=== PATIENT | male | born 1960 | race Two or more races ===

== ENCOUNTER 2025-05-17 10:15 | Inpatient (IN) | payer OTHER, MEDICAID ==
[~2025-05-17] VITALS: Ht 180.3 cm; Wt 107.0 kg
--- NOTE | 2025-05-17 10:46 | ED.PDOC ---
History of Present Illness HPI Comments 64M BIBA w/ prior MHx of DM(non-compliant w/ metformin), HTN:SHx of Hernia Sx and the c/c of CP. Pt reports on having had right hand tingling and pain sensation associated w/ swelling which is a "12/10" on the pain scale and radiates up to the right side of the chest. Denies any symptoms at this time. Patient denies any SOB, dizziness, numbness, weakness, fever, chills, or recent fall. Chief Complaint: Upper Extremity Time Seen by MD: 10:30 Reviewed Notes: Nurses Notes, Medications, Allergies Allergies: Coded Allergies: NO KNOWN ALLERGIES (Unverified , 05/17/25) Information Source: Patient Mode of Arrival: EMS Severity: Moderate Timing: Hours Duration: Since onset, Hours Prehospital treatment: None Past Medical History PAST MEDICAL HISTORY: DM (non-complient w/ metformin), HTN Surgical History: Hernia Repair Family History Family History: Reviewed,noncontributory to illness, Family hx of DM Social History Smoker: Other (Vape Use) Alcohol: Rarely Drugs: Denies Drug Use Lives In: Home Constitutional: denies: chills, diaphoresis, fatigue, fever, malaise, sweats, weakness, others EENTM: denies: blurred vision, double vision, ear bleeding, ear discharge, ear drainage, ear pain, ear ringing, eye pain, eye redness, hearing loss, mouth pain, mouth swelling, nasal discharge, nose bleeding, nose congestion, nose pain, photophobia, tearing, throat pain, throat swelling, voice changes, others Respiratory: denies: cough, hemoptysis, orthopnea, SOB at rest, shortness of breath, SOB with excertion, stridor, wheezing, others Cardiovascular: reports: chest pain; denies: dizzy spells, diaphoresis, Dyspnea on exertion, edema, irregular heart beat, left arm pain, lightheadedness, palpitations, PND, syncope, others Gastrointestinal: denies: abdomen distended, abdominal pain, blood streaked bowels, constipated, diarrhea, dysphagia, difficulty swallowing, hematemesis, melena, nausea, poor appetite, poor fluid intake, rectal bleeding, rectal pain, vomiting, others Genitourinary: denies: burning, dysuria, flank pain, frequency, hematuria, incontinence, penile discharge, penile sore, pain, testicle pain, testicle swelling, urgency, others Neurological: denies: dizziness, fainting, headache, left sided numbness, left sided weakness, numbness, paresthesia, pre-existing deficit, right sided numbness, right sided weakness, seizure, speech problems, tingling, tremors, weakness, others Musculoskeletal: reports: others (right hand swelling/pain); denies: back pain, gout, joint pain, joint swelling, muscle pain, muscle stiffness, neck pain Integumetry: denies: bruises, change in color, change in hair/nails, dryness, laceration, lesions, lumps, rash, wounds, others Allergic/Immunocompromised: denies: Difficulty Healing, Frequent Infections, Hives, Itching, others Hematologic/Lymphatic: denies: anemia, blood clots, easy bleeding, easy bruising, swollen glands, others Endocrine: denies: excessive hunger, excessive sweating, excessive thirst, excessive urination, flushing, intolerance to cold, intolerance to heat, unexplained weight gain, unexplained weight loss, others Psychiatric: denies: anxiety, bipolar disorder, depression, hopeless, panic disorder, schizophrenia, sleepless, suicidal, others All Other Systems: Reviewed and Negative Physical Exam General Appearance: No Apparent Distress HEENT: Normal ENT Inspection, Pharynx Normal, TMs Normal Neck: Full Range of Motion, Non-Tender, Normal, Normal Inspection Respiratory: Chest Non-Tender, Lungs Clear, No Accessory Muscle Use, No Respiratory Distress, Normal Breath Sounds Cardiovascular: No Edema, No JVD, No Murmur, No Gallop, Normal Peripheral Pulses, Regular Rate/Rhythm Breast Exam: Deferred Gastrointestinal: No Organomegaly, Non Tender, No Pulsatile Mass, Normal Bowel Sounds, Soft Genitalia: Deferred Pelvic: Deferred Rectal: Deferred Extremities: No calf tenderness, Normal capillary refill, Normal inspection, Normal range of motion, Non-tender, No pedal edema Musculoskeletal : Apperance: Normal Neurologic: Alert, financial aid coordinator II-XII nml as Tested, No Motor Deficits, Normal Affect, Normal Mood, No Sensory Deficits Cerebellar Function: Normal Reflexes: Normal Skin: Dry, Normal Color, Warm Lymphatic: No Adenopathy Was a procedure done? Was a procedure done?: No Differential Dx Considerations may include: Hyperglycemia, generalized weakness, electrolyte imbalance X-Ray, Labs, Meds, VS Vital Signs Date Time Temp Pulse Resp B/P (MAP) Pulse Ox O2 Delivery O2 Flow Rate FiO2 05/17/25 13:48 99 14 156/109 (125) 97 05/17/25 10:27 97.8 100 18 190/86 98 97.8 Lab Test 05/17/25 11:27 05/17/25 10:35 Range/Units POC Glucose 344 H 70-106 mg/dl White Blood Count 10.0 4.4-10.8 10^3/uL Red Blood Count 4.83 4.5-5.90 10^6/uL Hemoglobin 14.4 13.5-17.5 g/dL Hematocrit 42.3 41.0-53.0 % Mean Corpuscular Volume 87.7 80.0-100.0 fL Mean Corpuscular Hemoglobin 29.9 28.0-32.0 pg Mean Corpuscular Hemoglobin Concent 34.1 32.0-36.0 g/dL Red Cell Distribution Width 13.2 11.8-14.3 % Platelet Count 222 140-450 10^3/uL Mean Platelet Volume 9.5 6.9-10.8 fL Neutrophils (%) (Auto) 66.6 37.0-80.0 % Lymphocytes (%) (Auto) 23.7 10.0-50.0 % Monocytes (%) (Auto) 8.4 0.0-12.0 % Eosinophils (%) (Auto) 0.4 0.0-7.0 % Basophils (%) (Auto) 0.9 0.0-2.0 % Neutrophils # (Auto) 6.7 1.6-8.6 10 ^3/uL Lymphocytes # (Auto) 2.4 0.4-5.4 10 ^3/uL Monocytes # (Auto) 0.8 0-1.3 10 ^3/uL Eosinophils # (Auto) 0 0-0.8 10 ^3/uL Basophils # (Auto) 0.1 0-0.2 10 ^3/uL Nucleated Red Blood Cells 0.1 % Sodium Level 134 L 136-145 mmol/L Potassium Level 4.4 3.5-5.1 mmol/L Chloride Level 99 98-107 mmol/L Carbon Dioxide Level 26 20-31 mmol/L Anion Gap 9 5-15 Blood Urea Nitrogen 14 9-23 mg/dL Creatinine 1.09 0.700-1.30 mg/dL Glomerular Filtration Rate Calc 75 >90 mL/min BUN/Creatinine Ratio 12.8 10.0-20.0 Serum Glucose 353 H 74-106 mg/dL Calcium Level 9.7 8.7-10.4 mg/dL Current Medications Medications (Trade) Dose Ordered Sig/Jesus Route Start Time Stop Time Status Last Admin Sodium Chloride 1,000 ml @ 1,000 mls/hr Q1H ONCE IV 05/17/25 10:30 05/17/25 11:29 DC 05/17/25 11:23 Insulin Human Regular (InsuLIN R) 5 units ONCE ONCE IV 05/17/25 10:30 05/17/25 10:31 DC 05/17/25 11:27 IV Hep-Lock was established The patient was given a 1 L bolus of normal saline The patient was given insulin 5 units IV push new line B serum glucose is 353 indicating hyperglycemia The rest of the CBC and chemistry panel are within normal limits. The patient will be admitted with a diagnosis of uncontrolled diabetes with hyperglycemia Images Reviewed?: Images reviewed and evaluated by me Time of 1ST Reevaluation: 11:00 Reevaluation 1ST: Unchanged Patient Education/Counseling: Diagnosis, Treatment, Prognosis Family Education/Counseling: No Family Present SEPSIS Sepsis Screen Date sepsis recognized/suspect: May 17, 2025 Time Sepsis recognized/suspect: 103 Recent Procedure: No On Antibiotic Therapy: No Respiratory Rate >20: No Heart Rate >90: Yes Temp<36 C (96.8 F) or >38.3 C: No SBP <90 or MAP <65 mmHG: No New Acute Mental Status Change: No Is the patient on CPAP, BIPAP,: No Physician Orders Heplock Iv (05/17/25 10:22) Rt Upper Dvt (05/17/25 10:22) Hydrocodone-Acet 10/325mg Tab ([place] 10/ (05/17/25 14:15) Vital Signs Date Time Temp Pulse Resp B/P (MAP) Pulse Ox O2 Delivery O2 Flow Rate FiO2 05/17/25 13:48 99 14 156/109 (125) 97 05/17/25 10:27 97.8 100 18 190/86 98 97.8 Laboratory Tests Test 05/17/25 10:35 White Blood Count 10.0 10^3/uL (4.4-10.8) Medications Medications Dose Ordered Sig/Jesus Route Start Time Stop Time Status Last Admin Dose Admin Insulin Human Regular 5 units ONCE ONCE IV 05/17/25 10:30 05/17/25 10:31 DC 05/17/25 11:27 Sodium Chloride 1,000 ml @ 1,000 mls/hr Q1H ONCE IV 05/17/25 10:30 05/17/25 11:29 DC 05/17/25 11:23 Departure 1 Departure Time of Disposition: 14:04 Impression: Primary Impression: Uncontrolled diabetes mellitus Qualified Codes: E13.65 - Other specified diabetes mellitus with hyperg lycemia Disposition: ADMITTED INPATIENT Admit to: Med Surg Condition: Fair Critical Care Note Critical Care Time?: No Stability Stability form required: Yes Unstable for transfer: ED Physician Assesment (Clinical assesment) Heart Score Heart Score: Heart Score Response (Comments) Value History N/A 0 EKG N/A 0 Age N/A 0 Risk Factors N/A 0 Troponin N/A 0 Total 0 I personally scribed for ИРИНА BARROS MD ([email or web address]) on 05/17/25 at 10:46. Electronically submitted by Theodore Murphy ([email or web address]). ИРИНА BARROS MD May 17, 2025 10:46
[2025-05-17 10:51] LABS: Hematocrit 42.3 % (41.0-53.0); Hemoglobin 14.4 g/dL (13.5-17.5); Mean Corpuscular Hemoglobin 29.9 pg (28.0-32.0); Mean Corpuscular Volume 87.7 fL (80.0-100.0); Nucleated Red Blood Cells % 0.1 %
[2025-05-17 10:59] LABS: Chloride 99 mmol/L (98-107); Potassium 4.4 mmol/L (3.5-5.1)
[2025-05-17 11:00] LABS: Anion Gap 9 (5-15); Calcium 9.7 mg/dL (8.7-10.4); Carbon Dioxide 26 mmol/L (20-31); Sodium 134 mmol/L (136-145)
[2025-05-17 11:05] LABS: BUN/Creatinine Ratio 12.8 (10.0-20.0); Blood Urea Nitrogen 14 mg/dL (9-23)
[2025-05-17 11:06] LABS: Glucose 353 mg/dL (74-106)
[2025-05-17] MEDS: SODIUM CHLORIDE 0.9% 1,000 ML IV ONE (11:23)
[2025-05-17] MEDS: InsuLIN REG 1unit/0.01ml Soln (100units/ml) IV ONE (11:27)
--- NOTE | 2025-05-17 13:59 | DVH ---
RIGHT Upper Extremity Venous Duplex Clinical History: swelling Comparison: None Findings: Duplex Doppler evaluation of the venous system of the RIGHT lower neck and upper extremity including color Doppler and spectral/pulsed waveform analysis was performed. The internal jugular vein demonstrates appropriate compressibility and waveform variability. The subclavian vein is patent on color Doppler evaluation without intraluminal thrombus and demonstrates waveform variability. The visualized portion of the brachiocephalic vein is patent on color Doppler evaluation without intraluminal thrombus and demonstrates waveform variability. The axillary vein demonstrates appropriate compressibility and waveform variability. The brachial veins demonstrate appropriate compressibility and patency on Doppler evaluation. The basilic vein demonstrates appropriate compressibility and patency on Doppler evaluation. The cephalic vein demonstrates appropriate compressibility and patency on Doppler evaluation. Impression: No venous thrombus identified in the RIGHT upper extremity vessels evaluated above. If clinical concern/symptoms persist or worsen, short-interval follow-up study is suggested.
[2025-05-17] MEDS: HYDROcodone-ACET 10/325MG TAB PO ONE (14:56)
--- NOTE | 2025-05-17 15:12 | DVHHPRES ---
History of Present Illness Resident Creating Document: ALBA ZIEGLER RESIDENT History of Present Illness 64-year-old male with past medical history of hypertension, prediabetes, hernia surgery and tendonitis status post release surgery presented in the ED with complaints of right hand tingling and pain. Patient went that he has been having severe pain which she describes as "12/10" in intensity, associated with tingling and numbness, which is radiating to his arms up to his chest. Patient also mentioned associated chest pain which is relieved now. He described the chest pain as mid to right-sided, stabbing, increased on activity, improved on rest. Currently mentioned no chest pain. Patient mentioned that he has dyspnea correlating to NYHA. Patient denied any fever, chills. Denied any nausea, vomiting, abdominal pain, headache, dizziness. Denied any recent trauma Past medical history hypertension, prediabetes, hernia surgery and tendonitis status post release surgery Past surgical history No recent surgery Social history Positive for vaping Occasional alcohol No recreational drugs Family history Noncontributory to the above illness Allergic history No known allergies Review of Systems Review of Systems As described in the HPI Allergies: Coded Allergies: NO KNOWN ALLERGIES (Unverified , 05/17/25) Exam Vital Signs Vital Signs Date Time Temp Pulse Resp B/P (MAP) Pulse Ox O2 Delivery O2 Flow Rate FiO2 05/17/25 13:48 99 14 156/109 (125) 97 05/17/25 10:27 97.8 97.8 Exam Examination General Appearance: Alert, Oriented X3, Cooperative, No acute distress HEENT: EOMI Respiratory: Clear to auscultation, Normal air movement Cardiovascular: Regular rate, Normal S1, Normal S2 Abdominal: Normal bowel sounds Extremities: Purulent swelling of the 3rd digit, tenderness in the hand right-sided Skin: No rashes, No breakdown Neuro: Normal speech and tone Labs/Xrays Labs Test 05/17/25 11:27 05/17/25 10:35 Range/Units POC Glucose 344 H 70-106 mg/dl White Blood Count 10.0 4.4-10.8 10^3/uL Red Blood Count 4.83 4.5-5.90 10^6/uL Hemoglobin 14.4 13.5-17.5 g/dL Hematocrit 42.3 41.0-53.0 % Mean Corpuscular Volume 87.7 80.0-100.0 fL Mean Corpuscular Hemoglobin 29.9 28.0-32.0 pg Mean Corpuscular Hemoglobin Concent 34.1 32.0-36.0 g/dL Red Cell Distribution Width 13.2 11.8-14.3 % Platelet Count 222 140-450 10^3/uL Mean Platelet Volume 9.5 6.9-10.8 fL Neutrophils (%) (Auto) 66.6 37.0-80.0 % Lymphocytes (%) (Auto) 23.7 10.0-50.0 % Monocytes (%) (Auto) 8.4 0.0-12.0 % Eosinophils (%) (Auto) 0.4 0.0-7.0 % Basophils (%) (Auto) 0.9 0.0-2.0 % Neutrophils # (Auto) 6.7 1.6-8.6 10 ^3/uL Lymphocytes # (Auto) 2.4 0.4-5.4 10 ^3/uL Monocytes # (Auto) 0.8 0-1.3 10 ^3/uL Eosinophils # (Auto) 0 0-0.8 10 ^3/uL Basophils # (Auto) 0.1 0-0.2 10 ^3/uL Nucleated Red Blood Cells 0.1 % Sodium Level 134 L 136-145 mmol/L Potassium Level 4.4 3.5-5.1 mmol/L Chloride Level 99 98-107 mmol/L Carbon Dioxide Level 26 20-31 mmol/L Anion Gap 9 5-15 Blood Urea Nitrogen 14 9-23 mg/dL Creatinine 1.09 0.700-1.30 mg/dL Glomerular Filtration Rate Calc 75 >90 mL/min BUN/Creatinine Ratio 12.8 10.0-20.0 Serum Glucose 353 H 74-106 mg/dL Calcium Level 9.7 8.7-10.4 mg/dL SEPSIS Sepsis Screen Date sepsis recognized/suspect: May 17, 2025 Time Sepsis recognized/suspect: 1030 Recent Procedure: No On Antibiotic Therapy: No Respiratory Rate >20: No Heart Rate >90: Yes Temp<36 C (96.8 F) or >38.3 C: No SBP <90 or MAP <65 mmHG: No New Acute Mental Status Change: No Is the patient on CPAP, BIPAP,: No Physician Orders Heplock Iv (05/17/25 10:22) Rt Upper Dvt (05/17/25 10:22) Ct R Hand Wo Contrast (05/17/25 15:07) Admit (05/17/25 15:07) Nitroglycerin Sublingual (Ntrostat Subli (05/17/25 15:15) Morphine Sulfate Injection (05/17/25 15:15) Oxygen By Nasal Cannula (05/17/25 15:07) Stat Ekg For Chest Pain (05/17/25 15:07) Notify Md Of Changes From Base (05/17/25 15:07) Tech Intern For 24 Hours (05/17/25 15:07) Emergency Dysrhythmia Protocol (05/17/25 15:07) Rhythm Strips Once Every Shift (05/17/25 15:07) Electrocardigram (05/17/25 15:07) Troponin-I Hs (05/17/25 15:07) B-Type Natriuretic Peptide (05/17/25 15:07) Chest Xray 1 View (05/17/25 15:07) Troponin-I Hs (05/17/25 16:07) Troponin-I Hs (05/17/25 18:07) Clindamycin Ivpb Cleocin (05/17/25 22:00) Clindamycin Ivpb Cleocin (05/17/25 15:15) Vital Signs Date Time Temp Pulse Resp B/P (MAP) Pulse Ox O2 Delivery O2 Flow Rate FiO2 05/17/25 13:48 99 14 156/109 (125) 97 05/17/25 10:27 97.8 100 18 190/86 98 97.8 Laboratory Tests Test 05/17/25 10:35 White Blood Count 10.0 10^3/uL (4.4-10.8) Medications Medications Dose Ordered Sig/Jesus Route Start Time Stop Time Status Last Admin Dose Admin Acetaminophen/ Hydrocodone Bitart 1 tab ONCE ONCE PO 05/17/25 14:15 05/17/25 14:16 DC 05/17/25 14:56 1 TAB Insulin Human Regular 5 units ONCE ONCE IV 05/17/25 10:30 05/17/25 10:31 DC 05/17/25 11:27 5 UNITS Sodium Chloride 1,000 ml @ 1,000 mls/hr Q1H ONCE IV 05/17/25 10:30 05/17/25 11:29 DC 05/17/25 11:23 1,000 MLS/HR Assessment/Plan Assessment/Plan Assessment/plan # Right hand purulent cellulitis IV clindamycin CT hand right sided Surgery consult for incision and drainage # hypertensive crisis # chest pain likely due to hypertensive crisis, other causes not ruled out yet EKG Tropes BNP Currently out of hypertensive range, we will resume home medication # Ascending aortic aneurysm -enlarged mediastinum on Chest Xray Differential BP CT angio chest ordered # Diabetes mellitus type 2 Keep blood glucose between 140-180 Accu-Cheks q.6/a.c. HS Sliding scale insulin Diabetic diet: Consistent carbohydrate # DVT prophylaxis Patient is ambulatory Code status discussed with the patient for greater than 21 minutes, full code Case discussion with Dr. Dumont Plan discussed with: Patient, Other My Orders Orders - ALBA ZIEGLER RESIDENT Procedure Category Date Status Time Ct R Hand Wo Contrast CT 05/17/25 Verified 15:07 Admit ADMIT 05/17/25 Verified 15:07 Nitroglycerin PHA 05/17/25 Verified Sublingual (Ntrostat 15:15 Morphine Sulfate PHA 05/17/25 Verified Injection 15:15 Oxygen By Nasal RT 05/17/25 Verified Cannula 15:07 Stat Ekg For Chest [facility] 05/17/25 Verified Pain 15:07 Notify Of Changes [facility] 05/17/25 Verified From Base 15:07 Tech Intern For [facility] 05/17/25 Verified 24 Hours 15:07 Emergency Dysrhythmia [facility] 05/17/25 Verified Protocol 15:07 Rhythm Strips Once [facility] 05/17/25 Verified Every Shift 15:07 Electrocardigram EKG 05/17/25 Verified 15:07 Troponin-I Hs LAB 05/17/25 Verified 15:07 B-Type Natriuretic LAB 05/17/25 Verified Peptide 15:07 Chest Xray 1 View XY 05/17/25 Verified 15:07 Troponin-I Hs LAB 05/17/25 Verified 16:07 Troponin-I Hs LAB 05/17/25 Verified 18:07 Clindamycin Ivpb PHA 05/17/25 Verified Cleocin 22:00 Clindamycin Ivpb PHA 05/17/25 Verified Cleocin 15:15 Visit Coding STANDARD RES Billing Provider: ADITYA DUMONT MD Date of Service if different f: May 17, 2025 Common Visit Codes: [id number] INP/OBS CARE (HIGH) Secondary Visit Codes: [id number] CARE PLAN 30 MINUTES ALBA ZIEGLER RESIDENT May 17, 2025 15:12
[2025-05-17] MEDS ORDERED: MORPHINE SULFATE INJ 2 MG/ml SYRG IV PRN (15:15)
[2025-05-17] MEDS ORDERED: NITROGLYCERIN 0.4 MG SL TAB SL PRN (15:15)
[2025-05-17] MEDS: CLINDAMYCIN 900MG IV 50 ML IV ONE (15:34)
--- NOTE | 2025-05-17 15:48 | DVH ---
EXAM: XY CHEST XRAY 1 VIEW HISTORY: chest pain TECHNIQUE: 1 view of the chest COMPARISON: XY CHEST PORTABLE on DOS: 02/02/25 FINDINGS/IMPRESSION: LUNGS: No pleural effusion, consolidation, or pneumothorax. MEDIASTINUM: Unremarkable. BONES: No acute osseous abnormality. degenerative change of the left glenohumeral joint. OTHER: None.
--- NOTE | 2025-05-17 16:19 | DVH ---
EXAM: CT CT R HAND WO CONTRAST INDICATION: cellulitis TECHNIQUE: Axial images of right hand without contrast have been obtained along with coronal and sagittal reformatted images. All CT scans at this facility use dose modulation, iterative reconstruction, and/or weight based dosing when appropriate to reduce radiation dose to as low as reasonably achievable. COMPARISON: XY R HAND 3 VIEW XRAY on DOS: 07/11/24 FINDINGS: BONES: Severe joint space loss of the lunate facet with opposing extensive subchondral cystic change. Osseous erosions versus inconspicuous subcortical cystic change of the distal ulna and proximal aspect of the triquetrum. Suspected osseous erosion of the 2nd metacarpal head/neck. Additional subchondr al cysts versus erosions of the 1st through 5th metacarpal heads. Soft tissue swelling of the distal aspect of the 3rd digit without abnormal periosteal reaction or distal osseous erosion to suggest osteomyelitis of the distal aspect. No evidence of ulnar subluxation. MUSCLES: No abnormal attenuation. JOINT SPACES: No joint effusion. OTHER: No abnormal drainable fluid collection/abscess. IMPRESSION: 1. Soft tissue swelling of the distal aspect of the 3rd digit without abnormal periosteal reaction or distal osseous erosion to suggest osteomyelitis of the distal aspect. 2. No abnormal drainable fluid collection/abscess. 3. Severe joint space loss of the lunate facet with opposing extensive subchondral cystic change. 4. Osseous erosions versus inconspicuous subcortical cystic change of the distal ulna and proximal aspect of the triquetrum. 5. Suspected osseous erosion of the 2nd metacarpal head/neck. 6. Additional subchondral cysts versus erosions of the 1st through 5th metacarpal heads.
[2025-05-17] MEDS ORDERED: LISI20TA56 PO (17:04)
[2025-05-17] MEDS ORDERED: DEXTROSE (50%) 50ML SYRG IV PRN (17:15)
--- NOTE | 2025-05-17 18:18 | ECG ---
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
[2025-05-17] MEDS: InsuLIN REG 1unit/0.01ml Soln (100units/ml) SC SCH (18:41)
[2025-05-17] MEDS: ACCU-CHEK COMFORT CURVE STRIP VI SCH (18:41)
[2025-05-17 21:00] VITALS: PULSE 110
--- NOTE | 2025-05-17 21:09 | DVH ---
CLINICAL HISTORY: rule out aortic dissection TECHNIQUE: CT angiogram of the chest was performed with and without intravenous contrast. 3D reconstructed MIP images were created and archived on the PACS system under concurrent radiologist supervision. This exam was performed according to our departmental dose optimization program. Up-to-date CT equipment and radiation dose reduction techniques are utilized as appropriate. CTDI 29 DLP 1079 COMPARISON: XY CHEST XRAY 1 VIEW on DOS: 05/17/25, XY CHEST PORTABLE on DOS: 02/02/25, XY CHEST PORTABLE on DOS: 11/27/24, XY CHEST PORTABLE on DOS: 11/15/24, XY CHEST XRAY 1 VIEW on DOS: 05/19/24 FINDINGS: Chest: There was adequate opacification of the pulmonary artery tree. There is no filling defect to suggest acute pulmonary embolism. There is mild dilatation of the ascending aorta measuring 4.1 cm. There are no significant atherosclerotic calcifications. There is no evidence for acute pulmonary embolus. The heart is normal in size. No pericardial effusion is seen. No enlarged mediastinal, hilar, or axillary lymph node is present. The central airways are patent. There is no bronchiectasis. There is no suspicious pulmonary nodule or area of consolidation. There is no pleural effusion present. Other: The visualized upper abdomen demonstrates diffuse hepatic steatosis. No acute osseous abnormality is identified. IMPRESSION: No evidence for acute pulmonary embolism. No aortic dissection. No pneumonia. Dilated 4.1 cm ascending thoracic aorta. Diffuse hepatic steatosis.
[2025-05-17] MEDS: HYDROcodone-ACET 5/325MG TAB PO PRN (21:36)
[2025-05-17] MEDS: CLINDAMYCIN 900MG IV 50 ML IV SCH (21:37)
[2025-05-17 22:14] LABS: Opiate Scree,Urine Neg (NEGATIVE)
[2025-05-17 22:16] VITALS: BP 150/105; PULSE 112; RESP 20; TEMP 98.3; O2SAT 98
[2025-05-17 22:53] LABS: Amphetamine Screen, Urine Pos (NEGATIVE); Barbiturate Scree,Urine Neg (NEGATIVE); Benzodiazephine Screen, Urine Neg (NEGATIVE); Cannabinoid Screen, Urine Neg (NEGATIVE); Cocaine Screen, Urine Neg (NEGATIVE); Phencyclidine Screen, Urine Pos (NEGATIVE)
[2025-05-18 01:31] VITALS: BP 154/81; PULSE 103; RESP 18; TEMP 97.1; O2SAT 97
[2025-05-18 05:00] VITALS: BP 153/91; PULSE 95; RESP 17; TEMP 97.4; O2SAT 96
[2025-05-18 08:00] VITALS: O2SAT 96
[2025-05-18 08:58] VITALS: BP 146/102; PULSE 104; RESP 17; TEMP 98.4; O2SAT 97
[2025-05-18] MEDS: LISINOPRIL 20 MG TAB PO SCH (10:15)
[2025-05-18] MEDS: ACCU-CHEK COMFORT CURVE STRIP VI SCH (11:30)
--- NOTE | 2025-05-18 11:57 | DVHPN2 ---
Subjective c/o right hand 3rd finger swelling and discharge x few days HTN DM2 Changes from previous H/P or p: Changes Objective Vitals Vital Signs Date Time Temp Pulse Resp B/P (MAP) Pulse Ox O2 Delivery O2 Flow Rate FiO2 05/18/25 10:15 146/102 05/18/25 08:58 98.4 104 17 97 98.4 05/17/25 22:16 Room Air* 0 21 Intake/Output Intake and Output 05/18/25 07:00 Intake Total 1290 ml Output Total 1200 ml Balance 90 ml Intake Oral 240 ml IV Total 1050 ml Output Urine Total 1200 ml # Voids 1 General Appearance: Alert, Oriented X3, Cooperative Lungs: Clear to auscultation, Normal air movement Cardiovascular: Regular rate, Normal S1, Normal S2 Abdomen: Normal bowel sounds, Soft, No tenderness Extremities: No edema Medications Current Medications Medications Dose Ordered Sig/Jesus Route Start Time Stop Time Status Last Admin Dose Admin Nitroglycerin 0.4 mg Q5MINP PRN SL 05/17/25 15:15 Morphine Sulfate 2 mg Q30M PRN IV 05/17/25 15:15 Clindamycin Phosphate 50 ml @ 50 mls/hr Q8HR IV 05/17/25 22:00 05/18/25 06:34 50 MLS/HR Lisinopril 20 mg DAILY PO 05/18/25 10:00 05/18/25 10:15 20 MG Dextrose 50 ml UD PRN IV 05/17/25 17:15 Acetaminophen/ Hydrocodone Bitart 1 tab Q6HPRN PRN PO 05/17/25 17:45 05/18/25 03:50 1 TAB Diagnostic Test (Pha) 1 strip ACHS 05/18/25 11:30 Insulin Human Regular ACHS SC 05/18/25 11:30 Laboratory Results Laboratory Tests 05/17/25 10:35 Coagulation Test 05/17/25 17:53 D-Dimer, Quantitative 0.38 mg/L FEU (0.0-0.49) Assessment/Plan Assessment/Plan Right 3rd hand digit paronychia DM2, uncontrolled HTN, uncontrolled Homelessness PLAN: IV clindamycin Pain control Diabetic diet Accuchecks Lantus Losartan Monitor closely Plan discussed with: Patient My Orders Orders - OG EPPS MD Procedure Category Date Status Time Consistent DIET 12/4/25 Transmitted Carb(Ccho)Diabetes Breakfast Glucose Blood PHA 05/18/25 In Process (Accu-Chek Comfort 11:30 Insulin R (Human) PHA 05/18/25 In Process (Insulin R) 11:30 Date of Service: May 18, 2025 Billing Provider: OG EPPS MD Common Visit Codes: NOT BILLABLE OG EPPS MD May 18, 2025 11:57
[2025-05-18] MEDS ORDERED: ONDANSETRON HCL 4 MG/2 ML VIAL IV PRN (12:00)
[2025-05-18] MEDS ORDERED: ACETAMINOPHEN 325 MG TAB PO PRN (12:00)
[2025-05-18] MEDS ORDERED: LOSARTAN POTASSIUM 50 MG TAB PO ONE (12:00)
[2025-05-18] MEDS: InsuLIN REG 1unit/0.01ml Soln (100units/ml) SC SCH (12:12)
[2025-05-18] MEDS: INSULIN LANTUS (GLARGINE) 1 /0.01ml (100units/ml) SC ONE (12:26)
[2025-05-18 13:00] VITALS: BP 133/93; PULSE 112; RESP 18; TEMP 97.8; O2SAT 94
[2025-05-18] MEDS ORDERED: INSULIN LANTUS (GLARGINE) 1 /0.01ml (100units/ml) SC SCH (22:00)
[2025-05-19] MEDS ORDERED: LOSARTAN POTASSIUM 50 MG TAB PO SCH (10:00)
--- NOTE | 2025-05-19 10:02 | DVHSR ---
APPROVED REPORT EXAM: Two-dimensional and M-mode echocardiogram with Doppler and color Doppler. Blood Pressure: 153/91 mmHg INDICATION Chest Pain RISK FACTORS Obesity: Height: 70, Weight: 235 DIMENSIONS LVDd (3.8-5.7cm) LA (2D) 3.0 (1.9-4.0cm) Aortic Root (2.0-3.7cm) EF (%) 55.0 (55-70%) Rt. Atrium 3.2 (1.9-4.0cm) Asc. Aorta cm Mitral Valve Mitral Mitral Stenosis E wave 0.54m/s MV Mean GR. mmHg A wave 0.76m/s MV Peak GR. mmHg E/A ratio 0.7 2D MVA cm2 DECEL Time 172ms PRESS 1/2 Time ms Aortic Valve Aortic Valve Aortic Stenosis V1 0.97m/s AO Mean GR. 5mmHg V2 1.34m/s AO Peak GR. 7mmHg LVOT Diameter 1.7 (1.8-2.4cm) Doppler ELVIS 1.64cm2 Other Information Quality : LimitedTechnically Limited Rhythm : Technically limited study due to patient moving.body habitus.patient position. Conclusion LVEF is normal at 50-55% Right ventricle size and function grossly normal
--- NOTE | 2025-05-19 16:09 | DVHDS2 ---
Discharge Summary Date of Admission May 17, 2025 at 15:07 Date of Discharge: May 18, 2025 Labs/Diagnostic Data: Laboratory Results Test 05/18/25 06:21 05/17/25 21:00 05/17/25 17:53 05/17/25 10:35 POC Glucose 256 mg/dl (70-106) Urine Opiates Screen Neg (NEGATIVE) Urine Fentanyl Screen Neg (NEGATIVE) Urine Barbiturates Screen Neg (NEGATIVE) Urine Phencyclidine Screen Pos (NEGATIVE) Urine Amphetamines Screen Pos (NEGATIVE) Urine Benzodiazepines Screen Neg (NEGATIVE) Urine Cocaine Screen Neg (NEGATIVE) Urine Cannabinoids Screen Neg (NEGATIVE) D-Dimer, Quantitative 0.38 mg/L FEU (0.0-0.49) Troponin I High Sensitivity 4 ng/L (</=54) White Blood Count 10.0 10^3/uL (4.4-10.8) Red Blood Count 4.83 10^6/uL (4.5-5.90) Hemoglobin 14.4 g/dL (13.5-17.5) Hematocrit 42.3 % (41.0-53.0) Mean Corpuscular Volume 87.7 fL (80.0-100.0) Mean Corpuscular Hemoglobin 29.9 pg (28.0-32.0) Mean Corpuscular Hemoglobin Concent 34.1 g/dL (32.0-36.0) Red Cell Distribution Width 13.2 % (11.8-14.3) Platelet Count 222 10^3/uL (140-450) Mean Platelet Volume 9.5 fL (6.9-10.8) Neutrophils (%) (Auto) 66.6 % (37.0-80.0) Lymphocytes (%) (Auto) 23.7 % (10.0-50.0) Monocytes (%) (Auto) 8.4 % (0.0-12.0) Eosinophils (%) (Auto) 0.4 % (0.0-7.0) Basophils (%) (Auto) 0.9 % (0.0-2.0) Neutrophils # (Auto) 6.7 10 ^3/uL (1.6-8.6) Lymphocytes # (Auto) 2.4 10 ^3/uL (0.4-5.4) Monocytes # (Auto) 0.8 10 ^3/uL (0-1.3) Eosinophils # (Auto) 0 10 ^3/uL (0-0.8) Basophils # (Auto) 0.1 10 ^3/uL (0-0.2) Nucleated Red Blood Cells 0.1 % Sodium Level 134 mmol/L (136-145) Potassium Level 4.4 mmol/L (3.5-5.1) Chloride Level 99 mmol/L (98-107) Carbon Dioxide Level 26 mmol/L (20-31) Anion Gap 9 (5-15) Blood Urea Nitrogen 14 mg/dL (9-23) Creatinine 1.09 mg/dL (0.700-1.30) Glomerular Filtration Rate Calc 75 mL/min (>90) BUN/Creatinine Ratio 12.8 (10.0-20.0) Serum Glucose 353 mg/dL (74-106) Calcium Level 9.7 mg/dL (8.7-10.4) B-Type Natriuretic Peptide 4.52 pg/mL (0-100) Other Laboratory Tests 05/17/25 10:35 Brief Hx & Hospital Course: Final diagnoses: Right 3rd hand digit paronychia DM2, uncontrolled HTN, uncontrolled Homelessness He left AMA after he was seen today. Condition at Discharge: Unstable Final Diagnosis/Problems List Right 3rd hand digit paronychia DM2, uncontrolled HTN, uncontrolled Homelessness Discharge Disposition: AMA SNF Discharge Will this Physician continue t: No Discharge Instruct/Medications Scheduled Lisinopril (Lisinopril), 1 TAB PO DAILY, (Reported) Discharge Statement: "Patient was advised to return to the ER or call 911 if any headaches, dizziness, shortness of breath, chest pain, abdominal pain, bleeding, fevers, or worsening of medical condition. Patient was counseled about treatment plan, medications, possible side effects, patientverbalized understanding. All questions were answered to the best of my ability. This discharge took greater then 30 minutes in planning, reviewing documentation, counseling the patient, and discussing with other team members." ASSESSMENT ASSESSMENT Assessment Date of Service: May 18, 2025 Billing Provider: OG EPPS MD Common Visit Codes: NOT BILLABLE OG EPPS MD May 19, 2025 16:09
== END 2025-05-18 16:30 | disposition left against medical advice (07) | DRG 603 ==
LOC: EDBD 10:15 → ER 10:15 → OVERFLOW 15:07 → TELE-CENTR 21:03
PROVIDERS: ADMIT Internal Medicine Geriatric Medicine; ATTEND Internal Medicine Geriatric Medicine
DX: L03.011 Cellulitis of right finger (principal); I16.9 Hypertensive crisis, unspecified; E11.65 Type 2 diabetes mellitus with hyperglycemia; I71.21 Aneurysm of the ascending aorta, without rupture; Z59.00 Homelessness unspecified; F17.200 Nicotine dependence, unspecified, uncomplicated; I10 Essential (primary) hypertension; Z53.29 Procedure and treatment not carried out because of patient's decision for other reasons; Z91.199 Patient's noncompliance with other medical treatment and regimen due to unspecified reason; Z83.3 Family history of diabetes mellitus
CPT/HCPCS: 36415; 71045; 71275; 73200; 80048; 80307; 82962; 83880; 84484; 85025; 85379; 93005; 93306; 93971; 96361; 96374; G0378; J1815; J3490

== ENCOUNTER 2025-05-24 17:34 | Emergency (ER) | payer OTHER, MEDICAID ==
[~2025-05-24] VITALS: Ht 185.4 cm; Wt 107.0 kg
[~2025-05-24 17:34] MED LIST: LISI20TA56 PO
[2025-05-24 17:37] VITALS: BP 181/112; PULSE 123; RESP 15; TEMP 97.3; O2SAT 95
[2025-05-24] MEDS ORDERED: CLIN1CAP70 PO (19:13)
[2025-05-24] MEDS ORDERED: IBUP-1456 PO (19:13)
--- NOTE | 2025-05-24 19:13 | ED.PDOC ---
History of Present Illness(SKN HPI Comments 64 year old male presents to ER for wound check. Patient with PMH of polysubstance abuse, DM and HTN states he developed an abscess to right 3rd finger that started draining bloody purulent drainage yesterday. Patient patient has been admitted twice at this hospital for similar symptoms and continuously signs himself out against medical advice with recent AMA earlier today. He reports 10/10 pain to right 3rd finger without radiation. Denies fever, body aches, chills, night sweats or any further symptoms/complaints Chief Complaint: Wound Check Time Seen by MD: 18:14 Primary Care Provider: PETE History of Present Illness: Nurses Notes, Medications, Allergies Allergies: Coded Allergies: NO KNOWN ALLERGIES (Unverified , 05/17/25) Home Meds Active Scripts Ibuprofen (Ibuprofen) 800 Mg Tab, 1 TAB PO TID PRN, #30 TAB 0 Refills Prov:JENNIFER ROSE 05/24/25 Clindamycin Hcl (Clindamycin Hcl) 300 Mg Cap, 300 MG PO QID for 10 Days, #40 CAP 0 Refills Prov:JENNIFER ROSE 05/24/25 Reported Medications Lisinopril (Lisinopril) 20 Mg Tab, 1 TAB PO DAILY 05/17/25 Information Source: Patient Mode of Arrival: Ambulatory Past Medical History PAST MEDICAL HISTORY: DM, HTN Surgical History: Hernia Repair Family History Family History: Family hx of DM Social History Smoker: Non-Smoker Alcohol: Rarely Drugs: Marijuana, Methamphetamine Lives In: Home Constitutional: denies: chills, diaphoresis, fatigue, fever, malaise, sweats, weakness, others EENTM: denies: blurred vision, double vision, ear bleeding, ear discharge, ear drainage, ear pain, ear ringing, eye pain, eye redness, hearing loss, mouth pain, mouth swelling, nasal discharge, nose bleeding, nose congestion, nose pain, photophobia, tearing, throat pain, throat swelling, voice changes, others Respiratory: denies: cough, hemoptysis, orthopnea, SOB at rest, shortness of breath, SOB with excertion, stridor, wheezing, others Cardiovascular: denies: chest pain, dizzy spells, diaphoresis, Dyspnea on exertion, edema, irregular heart beat, left arm pain, lightheadedness, palpitations, PND, syncope, others Gastrointestinal: denies: abdomen distended, abdominal pain, blood streaked bowels, constipated, diarrhea, dysphagia, difficulty swallowing, hematemesis, melena, nausea, poor appetite, poor fluid intake, rectal bleeding, rectal pain, vomiting, others Genitourinary: denies: burning, dysuria, flank pain, frequency, hematuria, incontinence, penile discharge, penile sore, pain, testicle pain, testicle swelling, urgency, others Neurological: denies: dizziness, fainting, headache, left sided numbness, left sided weakness, numbness, paresthesia, pre-existing deficit, right sided numbness, right sided weakness, seizure, speech problems, tingling, tremors, weakness, others Musculoskeletal: denies: back pain, gout, joint pain, joint swelling, muscle pain, muscle stiffness, neck pain, others Integumetry: reports: others (As stated in HPI) Allergic/Immunocompromised: denies: Difficulty Healing, Frequent Infections, Hives, Itching, others Hematologic/Lymphatic: denies: anemia, blood clots, easy bleeding, easy bruising, swollen glands, others Endocrine: denies: excessive hunger, excessive sweating, excessive thirst, excessive urination, flushing, intolerance to cold, intolerance to heat, unexplained weight gain, unexplained weight loss, others Psychiatric: denies: anxiety, bipolar disorder, depression, hopeless, panic disorder, schizophrenia, sleepless, suicidal, others Physical Exam General Appearance: No Apparent Distress, Obese HEENT: PERRL/EOMI Neck: Full Range of Motion, Non-Tender, Normal Respiratory: Chest Non-Tender, Lungs Clear, No Accessory Muscle Use, No Respiratory Distress, Normal Breath Sounds Cardiovascular: No Murmur, No Gallop, Regular Rate/Rhythm Breast Exam: Deferred Gastrointestinal: NOT DONE Genitalia: Deferred Pelvic: Deferred Rectal: Deferred Extremities: Normal capillary refill Neurologic: Alert, core machine tender II-XII nml as Tested, Normal Affect, Normal Mood, No Sensory Deficits Cerebellar Function: Normal Reflexes: Normal Skin: Warm, Other (Moderate swelling/erythema and minimal purulent drainage noted to right 3rd finger. No crepitus, necrosis or red streaking noted. No tendon sheath tenderness noted, no pain with passive extension noted to right 3rd finger. Slight limitation on flexion of right 3rd finger noted) Peripheral Pulses: 2+ Radial (R), 2+ Radial (L), 2+ Brachial (R), 2+ Brachial (L) Lymphatic: No Adenopathy Was a procedure done? Was a procedure done?: No Sedation Sedation?: No Differential Diagnosis (INTG) Differential Diagnosis: Neurovascular Injury Differential Diagnosis: Other (Tenosynovitis, osteomyelitis, abscess) X-Ray, Labs, Meds, VS Vital Signs Date Time Temp Pulse Resp B/P (MAP) Pulse Ox O2 Delivery O2 Flow Rate FiO2 05/24/25 17:37 97.3 123 15 181/112 95 97.3 IMPRESSION: 1. Soft tissue inflammation along the entire dorsal 3rd digit extending to the level of the wrist, without evidence of a drainable fluid collection. 2. 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 Although no specific CT features of infectious or inflammatory arthropathy are present, outpatient follow-up is recommended including updated radiographs. All CT scans at this medical facility are performed using dose modulation techniques as appropriate to a performed exam including the following: Automated exposure control was utilized; adjustment of the MA and/or KV according to patient size; and use of iterative reconstruction technique. ATED BY: KAREEM PALACIO MD DICTATED DATE/TIME: 05/24/25154 SIGNED BY: KAREEM PALACIO MD SIGNED DATE/TIME: 05/24/25154 CC: CT of right hand from 05/24/25 reviewed Wound cleaning performed at bedside Wound care/cleaning discussed and advised Rocephin 1 g IM ordered Previous chart visits reviewed Patient continuously signs out of this hospital against medical advice, admission for IV antibiotics recommended again, however, patient A&0 x 4/has full decision making capacity and declines admission after risks were fully discussed, including worsening infection, abscess, osteomyelitis, functional impairment, sepsis and need for surgical intervention Patient agrees on discharge with oral antibiotics, wound care and strict return precautions. Advised to follow up in 24-48 hours for wound check Advised to follow up with PCP in 1-2 days Patient verbalized understanding and agreeable with current plan of care Advised to return to ER immediately if symptoms worsen Images Reviewed?: Images reviewed and evaluated by me Time of 1ST Reevaluation: 18:54 Reevaluation 1ST: N/A Patient Education/Counseling: Diagnosis, Treatment, Prognosis, Need For Follow Up Family Education/Counseling: No Family Present SEPSIS Sepsis Screen Date sepsis recognized/suspect: May 24, 2025 Time Sepsis recognized/suspect: 1738 Recent Procedure: No On Antibiotic Therapy: No Respiratory Rate >20: No Heart Rate >90: No Temp<36 C (96.8 F) or >38.3 C: No SBP <90 or MAP <65 mmHG: No New Acute Mental Status Change: No Is the patient on CPAP, BIPAP,: No Vital Signs Date Time Temp Pulse Resp B/P (MAP) Pulse Ox O2 Delivery O2 Flow Rate FiO2 05/24/25 17:37 97.3 123 15 181/112 95 97.3 Departure 1 Departure Time of Disposition: 19:10 Impression: Primary Impression: Cellulitis of finger of right hand Additional Impression: Polysubstance abuse Disposition: HOME / SELF CARE / HOMELESS Condition: Stable e-Prescriptions Ibuprofen (Ibuprofen) 800 Mg Tab 1 TAB PO TID PRN, #30 TAB 0 Refills Prov: JENNIFER ROSE 05/24/25 Clindamycin Hcl (Clindamycin Hcl) 300 Mg Cap 300 MG PO QID for 10 Days, #40 CAP 0 Refills Prov: JENNIFER ROSE 05/24/25 Discharged With: Friend Critical Care Note Critical Care Time?: No Stability Stability form required: No Heart Score Heart Score: Heart Score Response (Comments) Value History N/A 0 EKG N/A 0 Age N/A 0 Risk Factors N/A 0 Troponin N/A 0 Total 0 JENNIFER ROSE May 24, 2025 19:13
== END 2025-05-24 19:33 | disposition home or self-care (01) ==
LOC: ER 17:34
DX: L03.011 Cellulitis of right finger (principal); F19.10 Other psychoactive substance abuse, uncomplicated; E11.9 Type 2 diabetes mellitus without complications; I10 Essential (primary) hypertension; Z79.899 Other long term (current) drug therapy; Z98.890 Other specified postprocedural states